=== PATIENT | male | born 1960 ===

== ENCOUNTER → 2017-10-03 | Outpatient (CLI) | payer BC | END | disposition home or self-care (01) | LOC: C.RDSM 06:44 | PROVIDERS: ATTEND Physical Medicine & Rehabilitation Sports Medicine | DX: M25.461 Effusion, right knee (principal); S83.249A Other tear of medial meniscus, current injury, unspecified knee, initial encounter; X58.XXXA Exposure to other specified factors, initial encounter; S83.411D Sprain of medial collateral ligament of right knee, subsequent encounter; X58.XXXD Exposure to other specified factors, subsequent encounter; M71.21 Synovial cyst of popliteal space [Baker], right knee ==